=== PATIENT | female | born 2005 | race Caucasian/White ===

== ENCOUNTER 2023-07-26 11:39 | Emergency (ER) | payer OTHER ==
[~2023-07-26] VITALS: Ht 167.6 cm; Wt 73.1 kg
[2023-07-26 12:46] LABS: BASO # 0.1 10^3/uL (0.0-0.2); EOS # 0.1 10^3/uL (0.0-0.5); EOS % 1.5 % (0.0-3.0); HEMATOCRIT 39.7 % (36.0-47.0); HEMOGLOBIN 13.3 g/dl (12.0-15.5); LYMPH # 1.5 10^3/uL (1.5-5.0); LYMPH % 24.9 % (24.0-44.0); MEAN CORPUSCULAR HEMOGLOBIN 29.3 pg (27.0-33.0); MEAN CORPUSCULAR HGB CONC 33.5 g/dl (32.0-36.5); MEAN CORPUSCULAR VOLUME 87.4 fl (80.0-96.0); MONO # 0.3 10^3/uL (0.0-0.8); MONO % 5.6 % (2.0-8.0); NEUTROPHILS % 66.8 % (36.0-66.0); PLATELET COUNT, AUTOMATED 214 10^3/uL (150-450); RED BLOOD COUNT 4.54 10^6/uL (4.00-5.40); WHITE BLOOD COUNT 5.9 10^3/uL (4.0-10.0)
[2023-07-26 13:09] LABS: BLOOD UREA NITROGEN 9 MG/DL (9-23); CALCIUM LEVEL 9.6 MG/DL (8.5-10.1); CARBON DIOXIDE LEVEL 25 MMOL/L (20-31); CHLORIDE LEVEL 108 MMOL/L (98-107); CREATININE FOR GFR 0.65 MG/DL (0.55-1.30); GLUCOSE, FASTING 86 MG/DL (60-100); POTASSIUM SERUM 4.6 MMOL/L (3.5-5.1); SODIUM LEVEL 139 MMOL/L (136-145)
[2023-07-26 13:27] LABS: HCG, SERUM QUANTITATIVE 47291.4 MIU/ML (<4.2)
[2023-07-26 14:28] VITALS: BP 119/57; TEMP 97.4; O2SAT 100
== END 2023-07-26 14:33 | disposition home or self-care (01) ==
LOC: M ED 11:39
DX: O26.851 Spotting complicating pregnancy, first trimester (principal); O34.81 Maternal care for other abnormalities of pelvic organs, first trimester; N83.291 Other ovarian cyst, right side; Z88.5 Allergy status to narcotic agent; Z91.018 Allergy to other foods; Z3A.01 Less than 8 weeks gestation of pregnancy

== ENCOUNTER 2023-10-05 11:13 | Emergency (ER) | payer OTHER ==
[~2023-10-05] VITALS: Ht 167.6 cm; Wt 74.9 kg
[2023-10-05] MEDS ORDERED: MILKSUS10 (12:06)
[2023-10-05] MEDS ORDERED: PNV,1TAB3 (12:06)
[2023-10-05] MEDS ORDERED: ASPI-226 (12:06)
[2023-10-05] MEDS ORDERED: NARC1SPR (12:06)
[2023-10-05 12:38] VITALS: BP 110/57; TEMP 97.8; O2SAT 98
== END 2023-10-05 13:16 | disposition home or self-care (01) ==
LOC: M ED 11:13
DX: O00.01 Abdominal pregnancy with intrauterine pregnancy (principal); O34.82 Maternal care for other abnormalities of pelvic organs, second trimester; N83.11 Corpus luteum cyst of right ovary; W10.8XXA Fall (on) (from) other stairs and steps, initial encounter; Z3A.16 16 weeks gestation of pregnancy; Z79.82 Long term (current) use of aspirin; Z79.899 Other long term (current) drug therapy; Y92.9 Unspecified place or not applicable; Y93.89 Activity, other specified; Y99.9 Unspecified external cause status

== ENCOUNTER 2024-01-03 01:20 | Outpatient (CLI) | payer OTHER ==
[~2024-01-03] VITALS: Ht 167.6 cm; Wt 84.8 kg
[~2024-01-03 01:20] MED LIST: ASPI-226; MILKSUS10; NARC1SPR; PNV,1TAB3
[2024-01-03 01:33] VITALS: BP 128/75
[2024-01-03 02:48] VITALS: BP 116/57
[2024-01-03 03:08] LABS: HEMOGLOBIN 10.4 g/dl (12.0-15.5); MEAN CORPUSCULAR HEMOGLOBIN 29.4 pg (27.0-33.0); MEAN CORPUSCULAR HGB CONC 33.5 g/dl (32.0-36.5); MEAN CORPUSCULAR VOLUME 87.6 fl (80.0-96.0); PLATELET COUNT, AUTOMATED 199 10^3/uL (150-450); RED BLOOD COUNT 3.54 10^6/uL (4.00-5.40); WHITE BLOOD COUNT 10.6 10^3/uL (4.0-10.0)
[2024-01-03] MEDS ORDERED: FERR325T3 PO (03:26)
== END 2024-01-03 03:45 | disposition home or self-care (01) ==
LOC: M LDO 01:20
PROVIDERS: ATTEND Obstetrics & Gynecology
DX: O99.893 Other specified diseases and conditions complicating puerperium (principal); O26.893 Other specified pregnancy related conditions, third trimester; H53.8 Other visual disturbances; Z3A.29 29 weeks gestation of pregnancy
CPT/HCPCS: 36415; 59025; 85027; G0463

== ENCOUNTER 2024-01-21 23:13 | Observation (INO) | payer OTHER ==
[~2024-01-21] VITALS: Ht 167.6 cm; Wt 86.4 kg
[~2024-01-21 23:13] MED LIST changes: +FERR325T3 PO
[2024-01-22 00:28] VITALS: BP 122/58
[2024-01-22] MEDS: MORPHINE 2 MG/ML 1ML VIAL IV PRN (00:30)
[2024-01-22] MEDS: SIMETHICONE 80MG CHEW TAB PO PRN (00:33)
[2024-01-22] MEDS ORDERED: diphenhydrAMINE 50MG/ML VIAL As Ordered ONE (00:40)
[2024-01-22 00:53] LABS: HEMATOCRIT 33.9 % (36.0-47.0); HEMOGLOBIN 11.2 g/dl (12.0-15.5); MEAN CORPUSCULAR HEMOGLOBIN 29.4 pg (27.0-33.0); PLATELET COUNT, AUTOMATED 216 10^3/uL (150-450); RED BLOOD COUNT 3.81 10^6/uL (4.00-5.40); WHITE BLOOD COUNT 12.3 10^3/uL (4.0-10.0)
[2024-01-22] MEDS: diphenhydrAMINE 50MG/ML VIAL IV STA (00:54)
[2024-01-22 01:01] LABS: ALBUMIN 2.5 G/DL (3.2-5.2); ALKALINE PHOSPHATASE 105 U/L (35-104); ALT/SGPT 18 U/L (7.0-40); AMYLASE 303 U/L (30-118); AST/SGOT 25 U/L (<34); BILIRUBIN,TOTAL 0.4 MG/DL (0.3-1.2); BLOOD UREA NITROGEN 9 MG/DL (9-23); CALCIUM LEVEL 8.8 MG/DL (8.5-10.1); CARBON DIOXIDE LEVEL 22 MMOL/L (20-31); CHLORIDE LEVEL 107 MMOL/L (98-107); CREATININE FOR GFR 0.58 MG/DL (0.55-1.30); GLUCOSE, FASTING 94 MG/DL (60-100); POTASSIUM SERUM 3.8 MMOL/L (3.5-5.1); SODIUM LEVEL 140 MMOL/L (136-145); TOTAL PROTEIN 6.3 G/DL (5.7-8.2)
[2024-01-22 01:25] LABS: LIPASE 845 U/L (12-53)
[2024-01-22] MEDS: LR 1,000 ML IV SCH (01:45)
[2024-01-22 02:05] VITALS: BP 124/61
[2024-01-22 07:41] VITALS: BP 112/56
[2024-01-22 09:44] VITALS: BP 108/57
[2024-01-22] MEDS: PANTOPRAZOLE 40MG VIAL IV SCH (11:00)
[2024-01-22 11:50] LABS: CHOLESTEROL RISK RATIO 3.01 (<5); HDL CHOLESTEROL 74.2 MG/DL (>40); LDL CHOLESTEROL 110.6 MG/DL (<100); NON-HDL-C 149.8 MG/DL
[2024-01-22 12:34] VITALS: BP 109/56
[2024-01-22] MEDS: traMADol 50 MG TAB PO PRN (13:41)
[2024-01-22 16:44] VITALS: BP 106/51
[2024-01-22] MEDS: traMADol 50 MG TAB PO ONE (20:50)
[2024-01-22] MEDS: ACETAMINOPHEN *IV* 1,000 MG in IV 1 EA IV ONE (22:34)
[2024-01-23 04:30] VITALS: BP 114/58; O2SAT 96
[2024-01-23] MEDS: PERCOCET 5MG/325MG TAB PO PRN (05:17)
[2024-01-23 06:00] VITALS: BP 109/51; O2SAT 97
[2024-01-23 08:26] LABS: HEMATOCRIT 30.7 % (36.0-47.0); HEMOGLOBIN 10.1 g/dl (12.0-15.5); MEAN CORPUSCULAR HEMOGLOBIN 29.4 pg (27.0-33.0); MEAN CORPUSCULAR HGB CONC 32.9 g/dl (32.0-36.5); MEAN CORPUSCULAR VOLUME 89.5 fl (80.0-96.0); PLATELET COUNT, AUTOMATED 174 10^3/uL (150-450); RED BLOOD COUNT 3.43 10^6/uL (4.00-5.40)
[2024-01-23 08:58] LABS: LIPASE 33 U/L (12-53)
[2024-01-23 09:00] LABS: ALBUMIN 2.1 G/DL (3.2-5.2); ALKALINE PHOSPHATASE 101 U/L (35-104); ALT/SGPT 30 U/L (7.0-40); AST/SGOT 27 U/L (<34); BILIRUBIN,TOTAL 0.3 MG/DL (0.3-1.2); BLOOD UREA NITROGEN < 5 MG/DL (9-23); CALCIUM LEVEL 8.3 MG/DL (8.5-10.1); CARBON DIOXIDE LEVEL 23 MMOL/L (20-31); CHLORIDE LEVEL 106 MMOL/L (98-107); CREATININE FOR GFR 0.45 MG/DL (0.55-1.30); GLUCOSE, FASTING 70 MG/DL (60-100); POTASSIUM SERUM 3.8 MMOL/L (3.5-5.1); SODIUM LEVEL 137 MMOL/L (136-145); TOTAL PROTEIN 5.5 G/DL (5.7-8.2)
[2024-01-23 10:10] VITALS: BP 111/59; O2SAT 98
[2024-01-23] MEDS: ONDANSETRON 4MG 2ML VIAL IV ONE (11:15)
[2024-01-23] MEDS ORDERED: ONDA-282 PO (11:22)
[2024-01-23 12:15] VITALS: BP 111/59; TEMP 98.2; O2SAT 98
== END 2024-01-23 12:05 | disposition home or self-care (01) ==
LOC: M LDO 23:13 → M LDI 01-22 01:52 → M OBS 01-23 04:30
PROVIDERS: ADMIT Obstetrics & Gynecology; ATTEND Obstetrics & Gynecology
DX: O99.613 Diseases of the digestive system complicating pregnancy, third trimester (principal); K85.10 Biliary acute pancreatitis without necrosis or infection; Z3A.32 32 weeks gestation of pregnancy
CPT/HCPCS: 36415; 59025; 74181; 76705; 76815; 76820; 76857; 80053; 80061; 82150; 83690; 85027; 87040; 96361; 96374; 96375; 96376; G0463; J0131; J1200; J2405; J2470

== ENCOUNTER 2024-02-19 10:59 | Outpatient (CLI) | payer OTHER ==
[~2024-02-19] VITALS: Ht 167.6 cm; Wt 87.2 kg
[~2024-02-19 10:59] MED LIST changes: +ONDA-282 PO
[2024-02-19] MEDS ORDERED: ACET500P3 PO (11:22)
[2024-02-19 11:24] VITALS: BP 119/60
[2024-02-19] MEDS ORDERED: HOME MED LIST COMPLETE! XX SCH (11:25)
[2024-02-19] MEDS ORDERED: ECOT81TA5 PO (11:30)
[2024-02-19 12:42] VITALS: BP 114/58
[2024-02-19 14:46] VITALS: BP 122/65
== END 2024-02-19 16:12 | disposition home or self-care (01) ==
LOC: M LDO 10:59
PROVIDERS: ATTEND Advanced Practice Midwife
DX: O36.8130 Decreased fetal movements, third trimester, not applicable or unspecified (principal); O99.613 Diseases of the digestive system complicating pregnancy, third trimester; O26.613 Liver and biliary tract disorders in pregnancy, third trimester; K85.90 Acute pancreatitis without necrosis or infection, unspecified; Z3A.36 36 weeks gestation of pregnancy
CPT/HCPCS: 59025; 76815; 76819; 76820; G0463

== ENCOUNTER → 2024-02-22 | Outpatient (REF) | payer OTHER ==
[~2024-02-22] MED LIST changes: +ACET500P3 PO; +ECOT81TA5 PO
== END ==
LOC: M PLALAB 10:51
PROVIDERS: ATTEND Nurse Practitioner Family
DX: Z36.85 Encounter for antenatal screening for Streptococcus B (principal); Z3A.36 36 weeks gestation of pregnancy

== ENCOUNTER 2024-02-25 19:39 | Outpatient (CLI) | payer OTHER ==
[~2024-02-25] VITALS: Ht 167.6 cm; Wt 86.7 kg
[2024-02-25] MEDS ORDERED: HOME MED LIST COMPLETE! XX SCH (19:50)
[2024-02-25 20:02] VITALS: BP 121/69
[2024-02-25 20:15] LABS: KETONE, URINE AUTO RFX NEGATIVE (NEGATIVE); LEUKOCYTE ESTERASE UR AUTO RFX NEGATIVE (NEGATIVE); MUCUS, URINE RFX SMALL (NEGATIVE); NITRITE, URINE AUTO RFX NEGATIVE (NEGATIVE); RBC, URINE AUTO RFX 1 /HPF (0-3); SQUAM EPITHELIAL CELL UR AURFX 7 /HPF (0-6); WBC, URINE AUTO RFX 2 /HPF (0-3)
[2024-02-25 22:30] VITALS: BP 118/68
[2024-02-25] MEDS: PROMETHAZINE 25MG/ML 1ML VIAL IV ONE (23:26)
[2024-02-26 02:17] VITALS: BP 103/55
[2024-02-26] MEDS: ACETAMINOPHEN 500 MG TAB PO ONE (02:24)
== END 2024-02-26 02:27 | disposition home or self-care (01) ==
LOC: M LDO 19:39
PROVIDERS: ATTEND Obstetrics & Gynecology
DX: O36.8130 Decreased fetal movements, third trimester, not applicable or unspecified (principal); O47.03 False labor before 37 completed weeks of gestation, third trimester; O99.013 Anemia complicating pregnancy, third trimester; O99.613 Diseases of the digestive system complicating pregnancy, third trimester; O99.343 Other mental disorders complicating pregnancy, third trimester; Z3A.37 37 weeks gestation of pregnancy; D50.9 Iron deficiency anemia, unspecified; K85.10 Biliary acute pancreatitis without necrosis or infection; F41.8 Other specified anxiety disorders
CPT/HCPCS: 59025; 81001; 96374; G0463; J2550

== ENCOUNTER 2024-02-26 14:05 | Inpatient (IN) | payer OTHER ==
[2024-02-26] VITALS (32 sets, daily range): BP systolic 90–189; BP diastolic 50–105
[~2024-02-26] VITALS: Ht 167.6 cm; Wt 86.7 kg
[2024-02-26] MEDS ORDERED: HOME MED LIST COMPLETE! XX SCH (14:15)
[2024-02-26] MEDS: LACTATED RINGER'S 1000 ML IV STA (14:43)
[2024-02-26] MEDS ORDERED: CARBOPROST TROMETHAMINE 250 MCG/ML AMP IM PRN (14:45)
[2024-02-26] MEDS ORDERED: LIDOCAINE 1% MDV 20ML VIAL INFIL PRN (14:45)
[2024-02-26] MEDS ORDERED: OXYTOCIN INJ 10UNITS/ML 1ML VIAL IM PRN (14:45)
[2024-02-26] MEDS ORDERED: LR 1,000 ML IV SCH ×2 (14:45→23:10)
[2024-02-26] MEDS ORDERED: OXYTOCIN DRIP 30 UNITS in IV 1 EA IV PRN (14:45)
[2024-02-26] MEDS ORDERED: TRANEXAMIC ACID INJection 1,000 MG in NS 100 ML IV PRN (14:45)
[2024-02-26] MEDS ORDERED: METHYLERGONOVINE MALEATE 0.2MG/ML 1ML VIAL IM PRN (14:45)
[2024-02-26] MEDS ORDERED: NALOXONE INJ 0.4MG/1ML VIAL IV PRN (15:15)
[2024-02-26] MEDS ORDERED: ePHEDrine SULFATE 25 MG/5 ML(5MG/ML) SYRINGE IVP PRN (15:15)
[2024-02-26] MEDS ORDERED: LR 500 ML IV PRN (15:15)
[2024-02-26] MEDS: FENTANYL/ROPIVACAINE/NACL BAG 100 ML EPIDURAL SCH (15:15)
[2024-02-26] MEDS ORDERED: EPIDURAL/PCA KEYS XX PRN (15:15)
[2024-02-26] MEDS ORDERED: ONDANSETRON 4MG 2ML VIAL IV PRN ×2 (15:15→23:10)
[2024-02-26] MEDS ORDERED: diphenhydrAMINE 50MG/ML VIAL IV PRN (15:15)
[2024-02-26 15:32] LABS: HEMATOCRIT 35.3 % (36.0-47.0); HEMOGLOBIN 11.7 g/dl (12.0-15.5); MEAN CORPUSCULAR HEMOGLOBIN 28.4 pg (27.0-33.0); MEAN CORPUSCULAR HGB CONC 33.1 g/dl (32.0-36.5); MEAN CORPUSCULAR VOLUME 85.7 fl (80.0-96.0); PLATELET COUNT, AUTOMATED 226 10^3/uL (150-450); RED BLOOD COUNT 4.12 10^6/uL (4.00-5.40); WHITE BLOOD COUNT 10.5 10^3/uL (4.0-10.0)
[2024-02-26 16:51] LABS: HEPATITIS C VIRUS ABY INDEX < 0.02 INDEX (<0.8)
[2024-02-26] MEDS ORDERED: RHOGAM 300MCG (1500IU) INJ IM SCH (23:10)
[2024-02-26] MEDS ORDERED: METHYLERGONOVINE MALEATE 0.2 MG TAB PO PRN (23:10)
[2024-02-26] MEDS ORDERED: ANUSOL HC CREAM 30GM TOP PRN (23:10)
[2024-02-26] MEDS: OXYTOCIN DRIP 30 UNITS in IV 1 EA IV SCH (23:10)
[2024-02-26] MEDS ORDERED: CALCIUM CARBONATE 500 MG CHEW U/D PO PRN (23:10)
[2024-02-26] MEDS ORDERED: IBUPROFEN 600MG TAB PO PRN (23:10)
[2024-02-26] MEDS ORDERED: ACETAMINOPHEN 325 MG TAB PO PRN (23:10)
[2024-02-27 00:03] VITALS: BP 117/61
[2024-02-27] MEDS: DIBUCAINE 1% OINTMENT 30GM TOP PRN (02:15)
[2024-02-27] MEDS: IBUPROFEN 800 MG TAB PO PRN (02:15)
[2024-02-27 05:00] VITALS: BP 106/57; O2SAT 98
[2024-02-27] MEDS: PRENATAL VITAMINS CHEWABLE TABLET PO SCH (08:01)
[2024-02-27] MEDS: FERROUS SULFATE 325MG TAB PO SCH (08:01)
[2024-02-27] MEDS: ACETAMINOPHEN 500 MG TAB PO PRN (08:02)
[2024-02-27 18:00] VITALS: BP 106/59; O2SAT 98
[2024-02-27] MEDS: DOCUSATE SODIUM 100MG CAPSULE PO PRN (19:07)
[2024-02-28 06:00] VITALS: BP 90/53; O2SAT 100
[2024-02-28] MEDS: MEASLES,MUMPS,RUBELLA VACCINE INJ (MMR-II) SC.IMMUN ONE (09:00)
[2024-02-28 18:00] VITALS: BP 115/69; O2SAT 97
[2024-02-29 06:00] VITALS: BP 108/68; O2SAT 98
[2024-02-29] MEDS ORDERED: IRON65TA2 PO (09:05)
[2024-02-29] MEDS ORDERED: PRENTAB9 PO (09:05)
[2024-02-29] MEDS ORDERED: ASPI-663 PO (09:05)
[2024-02-29] MEDS ORDERED: HOME MED LIST COMPLETE! XX SCH (09:05)
[2024-02-29] MEDS ORDERED: ACET-683 PO (10:26)
[2024-02-29] MEDS ORDERED: IBUP80TA PO (10:26)
== END 2024-02-29 14:05 | disposition home or self-care (01) | DRG 806 ==
LOC: M LDO 14:05 → M LDI 14:44 → M OBS 02-27 00:50
PROVIDERS: ADMIT Advanced Practice Midwife; ATTEND Advanced Practice Midwife
PROC: 10E0XZZ Delivery of Products of Conception, External Approach (ICD-10-PCS; principal; 2024-02-26)
PROC: 0HQ9XZZ Repair Perineum Skin, External Approach (ICD-10-PCS; 2024-02-26)
DX: O99.62 Diseases of the digestive system complicating childbirth (principal); Z37.0 Single live birth; K86.1 Other chronic pancreatitis; O70.0 First degree perineal laceration during delivery; Z3A.37 37 weeks gestation of pregnancy; Z88.5 Allergy status to narcotic agent; Z91.018 Allergy to other foods

== ENCOUNTER 2024-04-04 04:43 | Emergency (ER) | payer OTHER ==
[~2024-04-04] VITALS: Ht 167.6 cm; Wt 77.3 kg
[~2024-04-04 04:43] MED LIST changes: +ACET-683 PO; +ASPI-663 PO; +IBUP80TA PO; +IRON65TA2 PO; +PRENTAB9 PO
[2024-04-04 04:49] VITALS: BP 132/73; TEMP 97.6; O2SAT 99
== END 2024-04-04 06:56 | disposition left against medical advice (07) ==
LOC: M ED 04:43
DX: Z53.21 Procedure and treatment not carried out due to patient leaving prior to being seen by health care provider (principal)

== ENCOUNTER 2024-04-08 14:44 | Emergency (ER) | payer OTHER ==
[~2024-04-08] VITALS: Ht 167.6 cm; Wt 77.1 kg
[2024-04-08 15:40] LABS: BASO # 0.1 10^3/uL (0.0-0.2); BASO % 0.8 % (0.0-1.0); EOS # 0.3 10^3/uL (0.0-0.5); EOS % 4.2 % (0.0-3.0); HEMOGLOBIN 12.5 g/dl (12.0-15.5); LYMPH # 3.7 10^3/uL (1.5-5.0); LYMPH % 52.1 % (24.0-44.0); MEAN CORPUSCULAR HEMOGLOBIN 27.8 pg (27.0-33.0); MEAN CORPUSCULAR HGB CONC 32.1 g/dl (32.0-36.5); MEAN CORPUSCULAR VOLUME 86.9 fl (80.0-96.0); MONO # 0.4 10^3/uL (0.0-0.8); MONO % 5.5 % (2.0-8.0); NEUTROPHILS # 2.6 10^3/uL (1.5-8.5); NEUTROPHILS % 37.1 % (36.0-66.0); PLATELET COUNT, AUTOMATED 199 10^3/uL (150-450); RED BLOOD COUNT 4.49 10^6/uL (4.00-5.40); WHITE BLOOD COUNT 7.1 10^3/uL (4.0-10.0)
[2024-04-08] MEDS: KETOROLAC 30 MG/ML 1ML VIAL IV ONE (15:44)
[2024-04-08] MEDS: ONDANSETRON 4MG 2ML VIAL IV ONE (15:44)
[2024-04-08 15:57] LABS: ALBUMIN 3.9 G/DL (3.2-5.2); BILIRUBIN,DIRECT 0.2 MG/DL (<0.4); BILIRUBIN,TOTAL 0.5 MG/DL (0.3-1.2); TOTAL PROTEIN 7.7 G/DL (5.7-8.2)
[2024-04-08 19:04] LABS: KETONE, URINE AUTO RFX NEGATIVE (NEGATIVE); NITRITE, URINE AUTO RFX NEGATIVE (NEGATIVE); RBC, URINE AUTO RFX 1 /HPF (0-3); SQUAM EPITHELIAL CELL UR AURFX 10 /HPF (0-6); WBC, URINE AUTO RFX 8 /HPF (0-3)
[2024-04-08 19:05] LABS: LEUKOCYTE ESTERASE UR AUTO RFX 2+ (NEGATIVE)
[2024-04-08] MEDS ORDERED: KETO10TAB PO (20:17)
[2024-04-08] MEDS: diphenhydrAMINE 50MG/ML VIAL IV ONE (20:18)
[2024-04-08] MEDS: MORPHINE 4 MG/ML 1ML VIAL IV ONE (20:19)
[2024-04-08 21:00] VITALS: BP 109/64; TEMP 96; O2SAT 98
== END 2024-04-08 21:05 | disposition home or self-care (01) ==
LOC: M ED 14:44
DX: K80.66 Calculus of gallbladder and bile duct with acute and chronic cholecystitis without obstruction (principal); Z90.89 Acquired absence of other organs; Z88.5 Allergy status to narcotic agent; Z91.018 Allergy to other foods; Z79.899 Other long term (current) drug therapy
CPT/HCPCS: 76705; 80047; 80076; 81001; 83690; 84702; 85025; 87086; 99284; G0463; J1200; J1885; J2405